=== PATIENT | male | born 1980 | race Caucasian/White ===

== ENCOUNTER 2019-07-24 09:27 | Inpatient (IN) | payer OTHER ==
[~2019-07-24] VITALS: Ht 152.4 cm; Wt 108.0 kg
[2019-07-24] VITALS (9 sets, daily range): BP systolic 100–158; BP diastolic 58–96
[~2019-07-24 09:27] MED LIST: HYDR-2761 PO; OXYC1TAB19 PO
[2019-07-24] MEDS ORDERED: ONDANSETRON PF 4 MG/2 ML VIAL. IVP PRN ×2 (11:15→15:15)
[2019-07-24] MEDS: POTASSIUM CL 20MEQ D5-0.45NACL 1,000 ML IV SCH ×2 (11:48→21:30)
[2019-07-24] MEDS: fentaNYL PF VIAL 100 MCG/2 ML VIAL IVP PRN ×2 (11:48→16:14)
--- NOTE | 2019-07-24 11:55 | PDOC2 ---
CONSULT Date of Consult Date of Consult DATE: 07/24/19 TIME: 11:48 Reason for Consult Reason for Consult: symptomatic cholelithiasis Referring Physician Referring Physician: Dr Parkinson Identification/Chief Complaint Chief Complaint RUQ pain Source Source: Chart review, Patient History of Present Illness Reason for Visit: Taurus is a 38 yo gentleman with acute onset of RUQ pain. He had a similar, less severe episode in May and had a GB US which showed cholelithiasis. Repeat US in the [facility] ED this am confirmed the stones and some inflammatory changes. He is tx to [facility] for treatment Past Medical History Cardiovascular: No pertinent hx Pulmonary: No pertinent hx Renal/: No pertinent hx Past Surgical History Past Surgical History: Other (knee scope) Family History Family History: No Significant Social History No ALCOHOL: occassional Current Medications Current Medications Current Medications Fentanyl Citrate (Fentanyl 2ml Vial) 50 mcg PRN Q3HRS PRN IVP PAIN; Start 07/24/19 at 11:15 Ondansetron HCl (Zofran) 4 mg PRN Q4HRS PRN IVP NAUSEA/VOMITING; Start 07/24/19 at 11:15 Potassium Chloride/Dextrose/ Sod Cl 1,000 ml @ 100 mls/hr Q10H IV ; Start 07/24/19 at 11:30 Active Scripts Active Percocet 7.5-325 Mg Tablet (Oxycodone/Acetaminophen) 1 Each Tablet 1-2 Tab PO Q4-6HRS PRN Allergies Allergies: Coded Allergies: No Known Drug Allergies (Unverified , 03/13/15) ROS Gastrointestinal: Yes Nausea, Yes Abdominal Pain Musculoskeletal: Yes Joint Pain Physical Exam General: Alert, Oriented X3, No acute distress HEENT: Atraumatic Lungs: Normal air movement Heart: Regular rate Abdomen: Soft, No tenderness Skin: Other (warm, dry) Labs Labs results from [facility] ED reviewed (nl LFTs) Images Images US done at [facility] this AM reviewed Assessment/Plan Assessment/Plan symptomatic cholelithiasis cholecystitis rec OR explained risks of l/s angeline to Taurus including but not limited to bleeding, infection, injury to surrounding structures requiring further surgery, possible open procedure, possible drain he will proceed Thanks for consult ALECIA LAND MD July 24, 2019 11:54
--- NOTE | 2019-07-24 12:21 | HP ---
ADMIT DATE: 07/24/2019 HISTORY OF PRESENT ILLNESS: The patient is a 38-year-old male patient who presented to the Emergency Room of [facility] with a complaint of abdominal pain that awakened him this morning at around 03:40. The pain is severe, according to him and goes through and through to the back, some nausea, but no vomiting, lasted all the time. He arrived to the Emergency Room of [facility]. He stated that he has had similar episode on last Thursday that lasted for about 4-1/2 hours, kept him awake the whole night and eventually subsided. He denied any vomiting, denied any diarrhea or constipation. He denied any chills, rigors or fever. He was evaluated in the Emergency Room and was extensively investigated. He has lab work, which were unremarkable except slightly elevated ALT. Lactic acid was normal and urinalysis was unremarkable. He had ultrasound of the abdomen which showed that the majority of the liver is visualized and appears homogenous. There is increased echogenicity attenuation of sound which further limits ultrasound and sensitivity for possible ulcerative lesion. The liver measures about 18 cm in length. The common bile duct is mildly dilated and measures about 6.5 mm in diameter. The gallbladder is mildly distended and there are 6 stones and sludge. The gallbladder appears borderline thickened and there is trace of pericystic fluid. There is tenderness over the gallbladder. Pancreas is not well visualized due to overlying bowel gas. The right kidney appears to be normal and measures 11.5 cm in length and the patient was diagnosed with acute cholecystitis and was transferred to [facility] for further evaluation and perhaps definitive surgical treatment by the surgical team. PAST MEDICAL HISTORY: Unremarkable. PAST SURGICAL HISTORY: Significant for arthroscopic right knee surgery for torn anterior cruciate ligament. ALLERGIES: He has no known drug allergies. MEDICATIONS: He is currently on no medication by prescription or [id number]. FAMILY HISTORY: He has 2 brothers, 1 older and 1 younger. His father at the age of 63 because of throat cancer, felt to be due to [place]. His mother is still alive at the age of 70 and has diabetes. SOCIAL HISTORY: He is , has 1 son. He never smoked, does not drink alcohol. 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 REVIEW OF SYSTEMS: Unremarkable. PHYSICAL EXAMINATION: GENERAL: On examining him, he looked well and was clearly in no apparent respiratory distress. No pallor, jaundice, cyanosis, or thyromegaly. No jugular venous distention. No limb edema. VITAL SIGNS: His heart rate was 77, blood pressure was 154/72, temperature was 98.1, respiratory rate was 22, and oxygen saturation was 100% on room air. HEAD, EYES, EARS, NOSE AND THROAT: Showed normocephalic, atraumatic. NECK: Supple. HEART: Normal first and second heart sounds. No gallop or murmur. CHEST: Clear to auscultation. No crepitation or rhonchi. ABDOMEN: Distended. Tenderness mostly in the epigastric and right upper quadrant area. No guarding or rigidity. No organomegaly. All hernial orifices intact. Bowel sounds normal. NEUROLOGIC: He is grossly intact. LABORATORY DATA: Showed a white cell count of 9400, hemoglobin 14.8, hematocrit 44.8, MCV 89, and platelet count of 219,000 with normal manual differential. His chemistry showed a serum sodium 139, potassium 3.9, chloride 102, bicarbonate 26, anion gap of 11, BUN 19, creatinine 1.3, estimated GFR was 62 mL per minute. His glucose 111, lactic acid was 1.1, calcium was 9.2, magnesium 2.1. Total bilirubin, AST, and alkaline phosphatase normal. ALT is slightly elevated. His CK was 826. Total protein 7.3, albumin was 4. Serum lipase was 164. His prothrombin time, INR, and aPTT are normal and his urinalysis essentially unremarkable. His ultrasound showed that he has cholelithiasis and probable mild acute cholecystitis, mild hepatomegaly with fatty infiltration of the liver. He has also mildly dilated common bile duct with no stones in the common bile duct. PLAN: My plan is to keep him n.p.o. and start him on IV fluid, IV pain medication, antiemetic, and to consult the surgical team for further evaluation and treatment. ANTHONY DOMINGUEZ MD DR: CYRUS/ranjith JOB#: [id number] / [id number]
[2019-07-24] MEDS ORDERED: IV RINGERS,LACTATED 1000ML 1,000 ML IV SCH (12:33)
[2019-07-24] MEDS ORDERED: GLUCAGON,HUMAN RECOMBINANT 1 MG/ML VIAL. ONE (12:40)
[2019-07-24] MEDS ORDERED: SURGICEL HEMOSTAT 4X8 EACH. ONE ×2 (12:40→14:18)
[2019-07-24] MEDS ORDERED: IOHEXOL 300 MG/ML 50 ML VIAL. ONE (12:40)
[2019-07-24] MEDS ORDERED: BUPIVACAINE-EPI 0.5%-1:200000 MPF 30 ML VIAL. ONE (12:40)
[2019-07-24] MEDS ORDERED: PROCHLORPERAZINE 10 MG/2 ML VIAL. IV PRN (12:45)
[2019-07-24] MEDS ORDERED: MORPHINE SULFATE 2 MG/ML VIAL. IV PRN (12:45)
[2019-07-24] MEDS ORDERED: LIDOCAINE 1% PF 2 ML VIAL. ID PRN (12:45)
[2019-07-24] MEDS ORDERED: HYDROmorphone 2 MG/ML VIAL IV PRN ×2 (12:45→15:15)
[2019-07-24] MEDS ORDERED: fentaNYL PF VIAL 100 MCG/2 ML VIAL IV PRN (12:45)
[2019-07-24] MEDS ORDERED: ONDANSETRON PF 4 MG/2 ML VIAL. IV PRN (12:45)
[2019-07-24] MEDS ORDERED: fentaNYL PF VIAL 250 MCG/5 ML VIAL ONE (12:52)
[2019-07-24] MEDS ORDERED: ROCURONIUM 50 MG/5 ML VIAL. ONE (12:52)
[2019-07-24] MEDS ORDERED: SUCCINYLCHOLINE 200 MG/10 ML VIAL. ONE (12:52)
[2019-07-24] MEDS ORDERED: ceFAZolin SODIUM 3 GM in IV DEXTROSE 5% 100ML 100 ML IV PRN (13:00)
[2019-07-24] MEDS ORDERED: DEXAMETHASONE SOD PHOS 4 MG/ML VIAL ONE (14:39)
[2019-07-24] MEDS ORDERED: LIDOCAINE 2% PF 5 ML VIAL. ONE (14:39)
[2019-07-24] MEDS ORDERED: SEVOFLURANE 61 TO 120 MINUTES. IH ONE (14:39)
[2019-07-24] MEDS ORDERED: ONDANSETRON PF 4 MG/2 ML VIAL. ONE (14:39)
[2019-07-24] MEDS ORDERED: PROPOFOL 10 MG/ML (20ML) VIAL. IV ONE (14:39)
[2019-07-24] MEDS ORDERED: NEOSTIGMINE METHYLSULFATE 5 MG/5 ML SYRINGE. ONE (14:39)
[2019-07-24] MEDS ORDERED: GLYCOPYRROLATE 1 MG/5 ML VIAL. ONE (14:40)
[2019-07-24] MEDS: fentaNYL PF VIAL 100 MCG/2 ML VIAL IV PRN ×3 (14:55→15:19)
[2019-07-24] MEDS ORDERED: IV NORMAL SALINE 1000ML BAG 1,000 ML IV SCH (15:09)
[2019-07-24] MEDS: POTASSIUM CL 20MEQ-0.45% NACL 1,000 ML IV SCH (15:09)
[2019-07-24] MEDS ORDERED: NALOXONE 0.4 MG/ML VIAL. IV PRN (15:15)
[2019-07-24] MEDS ORDERED: oxyCODONE/APAP 5/325 1 TAB TABLET PO PRN (15:15)
[2019-07-24] MEDS ORDERED: DEXTROSE 50% 25 GM / 50ML DISP.SYRIN. IV PRN (15:15)
[2019-07-24] MEDS ORDERED: diphenhydrAMINE HCL 25 MG CAPSULE PO PRN (15:15)
[2019-07-24] MEDS ORDERED: 0.9 % SODIUM CHLORIDE 10 ML DISP.SYRIN. IV PRN (15:15)
--- NOTE | 2019-07-24 15:16 | PDOC ---
BRIEF OPERATIVE NOTE Date: July 24, 2019 Pre-Op Diagnosis cholelithiasis with subacute cholecystitis Post-Op Diagnosis same Procedure Performed l/s cholecystectomy with cholangiograms Surgeon Fabrizio FREITAS Anesthesia Type: General Blood Loss 50cc IV Fluid 600cc Specimens Obtained GB Findings no passage of contrast into the duodenum, sludge/debris in cystic duct Complications none ALECIA LAND MD July 24, 2019 15:16
--- NOTE | 2019-07-24 18:11 | OP ---
DATE OF SURGERY: 07/24/2019 PREOPERATIVE DIAGNOSIS: Cholelithiasis with subacute cholecystitis. POSTOPERATIVE DIAGNOSIS: Cholelithiasis with subacute cholecystitis. PROCEDURE: Laparoscopic cholecystectomy with cholangiogram. SURGEON: Edgar Land M.D. VALVE TECHNICIAN: FORTINO Mosqueda ANESTHESIA: General endotracheal. ESTIMATED BLOOD LOSS: 50 mL. INTRAVENOUS FLUIDS: 600 mL. INDICATIONS: The patient is a 38-year-old with known cholelithiasis, who presented to the Emergency Department at [place] with increased epigastric and right upper quadrant pain. He is brought for cholecystectomy. OPERATIVE FINDINGS: The liver was smooth and sharp. The gallbladder was mildly edematous. Cholangiogram showed the biliary tree in its entirety, however, contrast did not flow into the duodenum despite giving 1 mg of glucagon. Remainder of the inspection of the abdomen failed to reveal obvious abnormalities. DESCRIPTION OF PROCEDURE: The patient was brought to the operating suite, given a general endotracheal anesthetic and the abdomen was prepped and draped in usual sterile fashion. A supraumbilical incision was infiltrated with local anesthetic, incised, and a 5-mm Visiport used to safely gain access into the abdominal cavity taking care to avoid injury to the abdominal contents. Pneumoperitoneum established. Camera inserted. Inspection carried out with results as noted above. With the table in reverse Trendelenburg rolled to the left, the epigastric, midclavicular, and lateral ports were placed under direct vision. The gallbladder was retracted superolaterally and the cystic duct and cystic artery were carefully exposed. The duct was clipped on the gallbladder side and when opened for cholangiogram, extruded some yellow viscous material. The duct was milked until bile returned and a catheter was then placed. Cholangiograms were made. These showed a feathery biliary system; however, no contrast made its way into the duodenum. In light of this, the patient was given 1 mg of glucagon and after 2 minutes circulation time, repeat films continued to show no drainage of contrast into the duodenum. The catheter was removed. The cystic duct was clipped x 3 and divided taking care to avoid injury or compromise of the common duct. The cystic artery was clipped x 2 and divided, then gallbladder freed from the bed and placed in an EndoCatch bag. Hemostasis in the fossa obtained with cautery, Surgicel, and FloSeal. When hemostasis had been obtained, a 19-English round Derian drain was brought through the epigastric port out the lateral port, sewn into the skin with a silk stitch and left in the subhepatic space for postoperative drainage. Table returned to level. Gallbladder delivered through the epigastric incision, which was then closed with 0 Vicryl suture. At 6 cm intra-abdominal pressure, no bleeding from the epigastric closure, midclavicular port site after its removal, gallbladder fossa, drain site, abdomen decompressed, camera slowly removed, no bleeding seen. Skin incisions were closed with subcuticular 4-0 Monocryl. Steri-Strips and sterile dressings applied. The patient was awakened from his anesthetic and taken to the recovery room in satisfactory condition. EDGAR LAND MD DR: SHARON/ranjith JOB#: [id number] / [id number] ANTHONY Welsh MD
[2019-07-24] MEDS: DOCUSATE SODIUM 100 MG CAPSULE. PO SCH (20:22)
[2019-07-24] MEDS: oxyCODONE/APAP 5/325 1 TAB TABLET PO PRN (20:23)
[2019-07-25] MEDS: oxyCODONE/APAP 5/325 1 TAB TABLET PO PRN ×3 (00:36→11:16)
[2019-07-25] MEDS: POTASSIUM CL 20MEQ-0.45% NACL 1,000 ML IV SCH ×2 (00:42→09:29)
[2019-07-25 03:00] VITALS: BP 117/72
[2019-07-25 04:59] LABS: HEMATOCRIT 42.4 % (39.0-53.0); HEMOGLOBIN 14.1 g/dL (13.0-17.5); RED BLOOD COUNT 4.8 x10^6/uL (4.30-5.70); RED CELL DISTRIBUTION WIDTH 14.5 % (11.5-14.5); WHITE BLOOD COUNT 12.7 x10^3/uL (4.0-11.0)
[2019-07-25 05:29] LABS: ALBUMIN 3.5 g/dL (3.4-5.0); CALCIUM 8.6 mg/dL (8.5-10.1); CREATININE 1.3 mg/dL (0.7-1.3); GFR 62.5; POTASSIUM 4.6 mmol/L (3.5-5.1); TOTAL BILIRUBIN 0.7 mg/dL (0.2-1.0); TOTAL PROTEIN 7.1 g/dL (6.4-8.2)
[2019-07-25] MEDS ORDERED: ENOXAPARIN 40 MG/0.4 ML SYRINGE. SQ SCH ×2 (06:00→21:00)
[2019-07-25 07:20] VITALS: BP 123/70
[2019-07-25] MEDS: POTASSIUM CL 20MEQ D5-0.45NACL 1,000 ML IV SCH (07:30)
[2019-07-25] MEDS: DOCUSATE SODIUM 100 MG CAPSULE. PO SCH (09:28)
--- NOTE | 2019-07-25 09:52 | PDOC2 ---
GI CONSULT Reason For Consult: abnormal cholangiogram HPI: HPI: Pleasant 38 w/o male s/p cholecystectomy for cholelithiasis and cholecystitis by Dr. Dinh on 07/24/19. Operative note reviewed re: IOC - "no passage of contrast into the duodenum, sludge/debris in cystic duct" and we are asked to see for this. Bili and Alk Phos WNL w/ slightly elevated AST and ALT. Has some RUQ soreness post-op but pain prior to surgery has resolved. Before admission/surgery, terrible pain awoke him during the night several times. Tolerating clears w/o n/v and is passing gas. No chronic abd pain, diarrhea, constipation, hematochezia, or melena. Has occasional heartburn improved w/ Tums PRN. Has some chronic dysphagia symptoms - says "it's hard to swallow" and food "goes down hard" if he takes the first couple bites of food before taking a drink. Once he takes a drink, has no issues. No previous EGD or colonoscopy. No liver, pancreas, or PUD history. He would like to go home today. On US from [facility]: CBD 6.5mm, fatty liver. PMH: PMH: vasectomy, right ACL repair FH: Family History: Cancer (father - esophageal) Social History: Smoke: No ALCOHOL: none Drugs: None ROS: GEN: Denies fevers, chills, sweats HEENT: Denies blurred vision, sore throat CV: Denies chest pain RESP: Denies shortness of air, cough GI: Per HPI : Denies hematuria, dysuria ENDO: Denies weight changes NEURO: Denies confusion, dizziness MSK: Denies weakness, joint pain/swelling SKIN: Denies jaundice, pruritus Vitals: Vitals: Vital Signs Date Time Temp Pulse Resp B/P (MAP) Pulse Ox O2 Delivery O2 Flow Rate FiO2 07/25/19 07:20 97.7 82 17 123/70 (87) 98 Room Air 97.7 07/24/19 15:02 3 Labs: Labs: Laboratory Tests Test 07/25/19 04:20 White Blood Count 12.7 x10^3/uL (4.0-11.0) Red Blood Count 4.80 x10^6/uL (4.30-5.70) Hemoglobin 14.1 g/dL (13.0-17.5) Hematocrit 42.4 % (39.0-53.0) Mean Corpuscular Volume 88 fL (79-100) Mean Corpuscular Hemoglobin 29 pg (25-35) Mean Corpuscular Hemoglobin Concent 33 g/dL (31-37) Red Cell Distribution Width 14.5 % (11.5-14.5) Platelet Count 209 x10^3/uL (140-400) Sodium Level 140 mmol/L (136-145) Potassium Level 4.6 mmol/L (3.5-5.1) Chloride Level 104 mmol/L (98-107) Carbon Dioxide Level 27 mmol/L (21-32) Anion Gap 9 (6-14) Blood Urea Nitrogen 9 mg/dL (8-26) Creatinine 1.3 mg/dL (0.7-1.3) Estimated GFR (Cockcroft-Gault) 62.5 BUN/Creatinine Ratio 7 (6-20) Glucose Level 109 mg/dL (70-99) Calcium Level 8.6 mg/dL (8.5-10.1) Total Bilirubin 0.7 mg/dL (0.2-1.0) Aspartate Amino Transf (AST/SGOT) 67 U/L (15-37) Alanine Aminotransferase (ALT/SGPT) 113 U/L (16-63) Alkaline Phosphatase 82 U/L (46-116) Total Protein 7.1 g/dL (6.4-8.2) Albumin 3.5 g/dL (3.4-5.0) Albumin/Globulin Ratio 1.0 (1.0-1.7) Allergies: Coded Allergies: No Known Drug Allergies (Unverified , 03/13/15) Medications: Current Medications Medications (Trade) Dose Ordered Sig/Amaya Route PRN Reason Start Time Stop Time Status Last Admin Dose Admin Fentanyl Citrate (Fentanyl 2ml Vial) 50 mcg PRN Q3HRS PRN IVP PAIN 07/24/19 11:15 07/24/19 16:14 Potassium Chloride/Dextrose/ Sod Cl 1,000 ml @ 100 mls/hr Q10H IV 07/24/19 11:30 07/24/19 11:48 Metronidazole 100 ml @ 100 mls/hr 1X ONCE IV 07/24/19 13:00 07/24/19 14:03 DC 07/24/19 13:36 Fentanyl Citrate (Fentanyl 2ml Vial) 50 mcg PRN Q5MIN PRN IV MODERATE TO SEVERE PAIN 07/24/19 12:45 07/25/19 12:44 07/24/19 15:19 Bupivacaine HCl/ Epinephrine Bitart (Sensorcain-Epi 0.5%-1:427527 Mpf) 30 ml STK-MED ONCE .ROUTE 07/24/19 12:40 07/24/19 12:40 DC 07/24/19 13:38 Iohexol (Omnipaque 300 Mg/ml) 50 ml STK-MED ONCE .ROUTE 07/24/19 12:40 07/24/19 12:40 DC 07/24/19 13:38 Cellulose (Surgicel Hemostat 4x8) 1 each STK-MED ONCE .ROUTE 07/24/19 12:40 07/24/19 12:41 DC 07/24/19 14:09 Cellulose (Surgicel Hemostat 4x8) 1 each STK-MED ONCE .ROUTE 07/24/19 14:18 07/24/19 14:18 DC 07/24/19 14:26 Enoxaparin Sodium (Lovenox 40mg Syringe) 40 mg Q24H SQ 07/25/19 06:00 07/25/19 06:22 Potassium Chloride/Sodium Chloride 1,000 ml @ 100 mls/hr Q10H IV 07/24/19 15:09 07/25/19 09:29 Oxycodone/ Acetaminophen (Percocet 5/325) 2 tab PRN Q4HRS PRN PO MODERATE PAIN, SEVERE PAIN 07/24/19 15:15 07/25/19 05:08 Docusate Sodium (Colace) 100 mg BID PO 07/24/19 21:00 07/25/19 09:28 Imaging: Imaging: IOC pending PE: GEN: NAD HEENT: Atraumatic, PERRLA LUNGS: CTAB HEART: RRR, no murmurs ABD: NABS, S/ND/NT, no masses EXTREMITY: No edema SKIN: No rashes, no jaundice NEURO/PSYCH: A & O 3 A/P: A/P: S/p cholecystectomy (cholelithiasis, cholecystitis), abnormal IOC Mildly elevated AST and ALT Heartburn, chronic/intermittent dysphagia CRC screen - average risk Fatty liver FH esophageal cancer -- Reviewed w/ Dr. Gan - check LFTs again - if stable/improved and tolerating diet, may DC from GI perspective. Considering heartburn history and FH of esophageal cancer, should pursue outpt EGD. QUINCY NUNEZ July 25, 2019 09:52
[2019-07-25] MEDS ORDERED: CALCIUM CARBONATE 500 MG TAB.CHEW PO PRN (10:00)
--- NOTE | 2019-07-25 10:46 | PN ---
DATE: 07/25/2019 SUBJECTIVE: The patient is sitting at the edge of the bed comfortably in no apparent distress. He continued to have some discomfort in his right upper quadrant, but denied any nausea or vomiting and he tolerating a liquid diet, he passed gas, but no bowel movement. PHYSICAL EXAMINATION: GENERAL: When I saw him, he looked well and was clearly in no apparent respiratory distress. No pallor, jaundice, cyanosis or thyromegaly. No jugular venous distention. No limb edema. VITAL SIGNS: His heart rate was 82, blood pressure was 123/70, temperature 97.7, respiratory rate 17, and oxygen saturation was 98% on room air. ABDOMEN: Slightly distended, soft with tenderness mostly in the upper quadrant. No guarding or rigidity. No organomegaly. Bowel sounds normal. NEUROLOGIC: He is grossly intact. His intake and output incompletely recorded. LABORATORY DATA: Lab work this morning showed a serum sodium 140, potassium 4.6, chloride 104, bicarbonate 27, anion gap of 9, BUN 9, creatinine 1.3, estimated GFR was 62 mL per minute. His glucose 109, calcium was 8.6. Total bilirubin and alkaline phosphatase normal. AST, ALT slightly elevated. Total protein 7.1, albumin 3.5. White cell count was 12,700, hemoglobin 14, hematocrit 42, MCV 88, and platelet count of 109,000. ASSESSMENT: This is a 38-year-old male patient who was admitted with cholelithiasis and acute cholecystitis for which he underwent laparoscopic cholecystectomy with cholangiogram. The patient is doing well, has no nausea, no vomiting, continued to have some discomfort in the right upper quadrant, tolerating a liquid diet. He passed gas. We will continue with IV fluid for now and pain medication and DVT prophylaxis. ANTHONY DOMINGUEZ MD DR: CYRUS/ranjith JOB#: [id number] / [id number]
[2019-07-25 11:00] VITALS: BP 126/72
--- NOTE | 2019-07-25 12:42 | NUR ---
SW following. Discussed with RN, pt wanting to go home today, ok to DC from GI standpoint. Clear liquid diet. RN advised no SW needs. SW will continue to follow.
--- NOTE | 2019-07-25 12:46 | PDOC ---
SURGICAL PROGRESS NOTE Subjective sore at epigastric site after tripping earlier Vital Signs Vital Signs Date Time Temp Pulse Resp B/P (MAP) Pulse Ox O2 Delivery O2 Flow Rate FiO2 07/25/19 11:16 Room Air 07/25/19 11:00 97.4 71 17 126/72 (90) 96 97.4 07/24/19 15:02 3 I&O Intake and Output 07/25/19 07:00 Intake Total 2750 ml Output Total 100 ml Balance 2650 ml Intake Oral 450 ml IV Total 1100 ml Other 1200 ml Output Drainage Total 100 ml # Voids 1 PATIENT HAS A SALDANA: No General: Alert, Oriented X3 Abdomen: Soft, Other (SILVINA with some serosanguineous output) Labs Laboratory Tests Test 07/25/19 04:20 07/25/19 04:25 White Blood Count 12.7 x10^3/uL (4.0-11.0) Red Blood Count 4.80 x10^6/uL (4.30-5.70) Hemoglobin 14.1 g/dL (13.0-17.5) Hematocrit 42.4 % (39.0-53.0) Mean Corpuscular Volume 88 fL (79-100) Mean Corpuscular Hemoglobin 29 pg (25-35) Mean Corpuscular Hemoglobin Concent 33 g/dL (31-37) Red Cell Distribution Width 14.5 % (11.5-14.5) Platelet Count 209 x10^3/uL (140-400) Sodium Level 140 mmol/L (136-145) Potassium Level 4.6 mmol/L (3.5-5.1) Chloride Level 104 mmol/L (98-107) Carbon Dioxide Level 27 mmol/L (21-32) Anion Gap 9 (6-14) Blood Urea Nitrogen 9 mg/dL (8-26) Creatinine 1.3 mg/dL (0.7-1.3) Estimated GFR (Cockcroft-Gault) 62.5 BUN/Creatinine Ratio 7 (6-20) Glucose Level 109 mg/dL (70-99) Calcium Level 8.6 mg/dL (8.5-10.1) Total Bilirubin 0.7 mg/dL (0.2-1.0) Aspartate Amino Transf (AST/SGOT) 67 U/L (15-37) Alanine Aminotransferase (ALT/SGPT) 113 U/L (16-63) Alkaline Phosphatase 82 U/L (46-116) Total Protein 7.1 g/dL (6.4-8.2) Albumin 3.5 g/dL (3.4-5.0) Albumin/Globulin Ratio 1.0 (1.0-1.7) Direct Bilirubin 0.1 mg/dL (0.0-0.2) Laboratory Tests Test 07/25/19 04:20 07/25/19 04:25 White Blood Count 12.7 x10^3/uL (4.0-11.0) Red Blood Count 4.80 x10^6/uL (4.30-5.70) Hemoglobin 14.1 g/dL (13.0-17.5) Hematocrit 42.4 % (39.0-53.0) Mean Corpuscular Volume 88 fL (79-100) Mean Corpuscular Hemoglobin 29 pg (25-35) Mean Corpuscular Hemoglobin Concent 33 g/dL (31-37) Red Cell Distribution Width 14.5 % (11.5-14.5) Platelet Count 209 x10^3/uL (140-400) Sodium Level 140 mmol/L (136-145) Potassium Level 4.6 mmol/L (3.5-5.1) Chloride Level 104 mmol/L (98-107) Carbon Dioxide Level 27 mmol/L (21-32) Anion Gap 9 (6-14) Blood Urea Nitrogen 9 mg/dL (8-26) Creatinine 1.3 mg/dL (0.7-1.3) Estimated GFR (Cockcroft-Gault) 62.5 BUN/Creatinine Ratio 7 (6-20) Glucose Level 109 mg/dL (70-99) Calcium Level 8.6 mg/dL (8.5-10.1) Total Bilirubin 0.7 mg/dL (0.2-1.0) Aspartate Amino Transf (AST/SGOT) 67 U/L (15-37) Alanine Aminotransferase (ALT/SGPT) 113 U/L (16-63) Alkaline Phosphatase 82 U/L (46-116) Total Protein 7.1 g/dL (6.4-8.2) Albumin 3.5 g/dL (3.4-5.0) Albumin/Globulin Ratio 1.0 (1.0-1.7) Direct Bilirubin 0.1 mg/dL (0.0-0.2) Assessment/Plan POD 1 l/s angeline OK to dismiss from surgery standpoint f/u in [facility] office for drain removal ALECIA LAND MD July 25, 2019 12:46
[2019-07-25] MEDS ORDERED: OXYC1TAB15 PO (12:49)
--- NOTE | 2019-07-25 14:52 | NUR ---
Pt. discharged to home, Rx transmitted to pharmacy per Dr. Dinh. Verbalized understanding of discharge instructions. Lap sites TAZ, JARETT. SILVINA donovan in tact. Pt. verbalized understanding of home drain teaching and received drain record.
[2019-07-26] MEDS ORDERED: AMOX1TAB61 PO (03:41)
[2019-07-26] MEDS ORDERED: OXYC1TAB19 PO (03:41)
--- NOTE | 2019-07-26 16:06 | PATHOLOGY ---
[facility] Accession Number: [id number] . 01 Material submitted: . gallbladder - GALLBLADDER . 01 Clinical history: . cholelithiasis . 02 Diagnosis: Gallbladder, laparoscopic cholecystectomy: - Cholelithiasis. - Cholesterolosis. 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 . ([facility]:mm; 07/26/2019) PENDING SALE TO [facility] 07/26/2019 1305 Local . 02 Comment: There is no evidence of malignancy. . ([facility]:mm; 07/26/2019) . 02 Electronically signed: . Eyal Buchanan MD, Pathologist NPI- [id number] . 01 Gross description: . The specimen is received in formalin labeled "Jhon, Taurus, gallbladder" and consists of an intact pink-lee gallbladder measuring 8.5 x 3.0 x 2.4 cm. The margin is inked black. Opening reveals a lumen filled with tenacious green bile and a single circular green calculus measuring 1.2 cm. The mucosa is green with extensive yellow stippling with an average wall thickness of 0.1. Adjacent the gallbladder neck is a lymph node candidate measuring 0.5 cm. No masses are identified. [employer] sections are submitted in A1 to include the lymph node candidate (intact). (SDY; 07/25/2019) SYU/SYU 07/25/2019 1608 Local . 02 Pathologist provided ICD-10: K80.10, K82.4 . 02 CPT . 783511 Specimen Comment: A courtesy copy of this report has been sent to [phone], [phone] Specimen Comment: [id number] Specimen Comment: Report sent to / DR UREÑA Performed at: 01 [facility] [address], [place], [place] [id number] MD Andrae Carter MD Phone: [phone] Performed at: 02 [facility] [address], [place] [id number] MD Eyal Buchanan MD Phone: [phone]
== END 2019-07-25 15:52 | disposition home or self-care (01) | DRG 419 ==
LOC: 4 NORTH 09:27
PROVIDERS: ADMIT Internal Medicine; ATTEND Internal Medicine
PROC: BF101ZZ Fluoroscopy of Bile Ducts using Low Osmolar Contrast (ICD-10-PCS; 2019-07-24)
PROC: 0FT44ZZ Resection of Gallbladder, Percutaneous Endoscopic Approach (ICD-10-PCS; principal; 2019-07-24 13:00)
DX: K80.00 Calculus of gallbladder with acute cholecystitis without obstruction (principal); K80.10 Calculus of gallbladder with chronic cholecystitis without obstruction; K76.0 Fatty (change of) liver, not elsewhere classified; Z80.8 Family history of malignant neoplasm of other organs or systems; Z83.3 Family history of diabetes mellitus
CPT/HCPCS: 36415; 74300; 80053; 82248; 85027; 88304; A7015; J0330; J1100; J1610; J1650; J2405; J2704; J2710; J3010; J3480; J3490; J7030; J7120; Q9967; G0378

== ENCOUNTER 2019-07-26 01:15 | Emergency (ER) | payer OTHER ==
[~2019-07-26] VITALS: Ht 175.3 cm; Wt 102.2 kg
[~2019-07-26 01:15] MED LIST changes: +OXYC1TAB15 PO
[2019-07-26] MEDS ORDERED: CONTRAST GIVEN. MC PRN (01:45)
[2019-07-26 01:49] LABS: BASO % 1 % (0-3); EOS # 0.1 x10^3/uL (0.0-0.7); EOS % 2 % (0-3); HEMATOCRIT 41.5 % (39.0-53.0); HEMOGLOBIN 13.8 g/dL (13.0-17.5); LYMPH # 2.1 x10^3/uL (1.0-4.8); LYMPH % 25 % (24-48); MEAN CORPUSCULAR HEMOGLOBIN 29 pg (25-35); MEAN CORPUSCULAR HGB CONC 33 g/dL (31-37); MEAN CORPUSCULAR VOLUME 88 fL (79-100); MONO # 0.6 x10^3/uL (0.0-1.1); MONO % 7 % (0-9); NEUT # 5.4 x10^3/uL (1.8-7.7); NEUT % 66 % (31-73); PLATELET COUNT 177 x10^3/uL (140-400); RED BLOOD COUNT 4.74 x10^6/uL (4.30-5.70); RED CELL DISTRIBUTION WIDTH 14.4 % (11.5-14.5); WHITE BLOOD COUNT 8.2 x10^3/uL (4.0-11.0)
[2019-07-26 01:55] LABS: CALCIUM 8.7 mg/dL (8.5-10.1); CREATININE 1.3 mg/dL (0.7-1.3); GFR 62.5; POTASSIUM 3.8 mmol/L (3.5-5.1)
[2019-07-26 02:00] LABS: ALBUMIN 3.5 g/dL (3.4-5.0); TOTAL BILIRUBIN 0.7 mg/dL (0.2-1.0)
[2019-07-26] MEDS ORDERED: IOHEXOL 300 MG/ML 100ML VIAL. IV ONE (02:00)
--- NOTE | 2019-07-26 02:27 | RAD ---
CT SCAN OF THE ABDOMEN AND PELVIS WITH IV CONTRAST. History: Postop abdominal pain Comparison:None. Procedure: Contiguous axial images of the abdomen and pelvis were performed after the administration of 75 cc of Omni 300 IV contrast. Oral contrast: No. Findings: There is patchy consolidation in the lower lobes bilaterally right worse than left. There is a percutaneous drain on the right there is mild emphysema in the right lateral abdominal wall associated with the drain placement. There is a small amount of dense fluid along the paracolic gutter on the right. The appendix is normal. The gallbladder has been removed and a small amount of air and fluid in the gallbladder fossa and there is mild free air anteriorly under the diaphragm. Liver: Unremarkable Spleen: Unremarkable Pancreas: Unremarkable Adrenal Glands: Unremarkable Kidneys: Unremarkable There is no mass or lymphadenopathy. The urinary bladder appears normal. Impression: 1. Mild air and fluid in the gallbladder fossa consistent with recent cholecystectomy. There is also a few foci of free air under the diaphragm. And minimal blood in the paracolic gutter on the right. 2. Bilateral lower lobe infiltrates with consolidation. End impression PQRS Compliance Statement: One or more of the following individualized dose reduction techniques were utilized for this examination: 1. Automated exposure control 2. Adjustment of the mA and/or kV according to patient size 3. Use of iterative reconstruction technique Electronically signed by: Alphonse Richard III, MD (07/26/2019 2:24 AM) [facility]
--- NOTE | 2019-07-26 03:15 | PHYS DOC ---
Past Medical History Past Medical History: No Pertinent History Past Surgical History: Cholecystectomy, Other Additional Past Surgical Histo: Right knee scope Smoking Status: Never Smoker Alcohol Use: None General Adult EDM: Chief Complaint: ABDOMINAL PAIN HPI: HPI: Patient is a 38 year old male who presents via EMS with report of severe upper abdominal pain after having had cholecystectomy. Patient was just discharged home yesterday and states that he was prescribed hydrocodone which has not been helping with the pain. He states the pain is worsened when he walks. He rates pain at a 9 out of 10 at that time. He states that is just unbearable. He does report some nausea but no vomiting. Patient has had no fever and states that he has not yet had a bowel movement since the surgery. [] Review of Systems: Review of Systems: Constitutional: Denies fever or chills. [] Respiratory: Denies cough or shortness of breath. [] Cardiovascular: Denies chest pain or edema. [] GI: Complains of abdominal pain. [] Neurologic: Denies headache, focal weakness or sensory changes. [] A full 10 point review of systems has been reviewed and is otherwise negative. Heart Score: Risk Factors: Risk Factors: DM, Current or recent (<one month) smoker, HTN, HLP, family history of CAD, obesity. Risk Scores: Score 0 - 3: 2.5% MACE over next 6 weeks - Discharge Home Score 4 - 6: 20.3% MACE over next 6 weeks - Admit for Clinical Observation Score 7 - 10: 72.7% MACE over next 6 weeks - Early Invasive Strategies Current Medications: Current Medications Medications (Trade) Dose Ordered Sig/Amaya Start Time Stop Time Status Last Admin Dose Admin Info (CONTRAST GIVEN -- Rx MONITORING) 1 each PRN DAILY PRN 07/26/19 01:45 07/28/19 01:44 Iohexol (Omnipaque 300 Mg/ml) 75 ml 1X ONCE 07/26/19 02:00 07/26/19 02:01 DC Allergies: Allergies: Allergies Coded Allergies Type Severity Reaction Last Updated Verified No Known Drug Allergies 03/13/15 No Physical Exam: PE: Constitutional: Well developed, well nourished, no acute distress, non-toxic appearance. [] HENT: Normocephalic, atraumatic, bilateral external ears normal, oropharynx moist, no oral exudates, nose normal. [] Eyes: PERRLA, EOMI, conjunctiva normal, no discharge. [] Neck: Normal range of motion, no tenderness, supple, no stridor. [] Cardiovascular: Regular rate and rhythm [] Lungs & Thorax: Bilateral breath sounds clear to auscultation [] Abdomen: Bowel sounds normal, soft, with diffuse tenderness, greatest in the right upper quadrant. [] Skin: Warm, dry, no erythema, no rash. [] Extremities: No tenderness, no cyanosis, no clubbing, ROM intact, no edema. [] Neurologic: Alert and oriented X 3, no focal deficits noted. [] Current Patient Data: Labs: Laboratory Tests Test 07/26/19 01:30 White Blood Count 8.2 x10^3/uL (4.0-11.0) Red Blood Count 4.74 x10^6/uL (4.30-5.70) Hemoglobin 13.8 g/dL (13.0-17.5) Hematocrit 41.5 % (39.0-53.0) Mean Corpuscular Volume 88 fL (79-100) Mean Corpuscular Hemoglobin 29 pg (25-35) Mean Corpuscular Hemoglobin Concent 33 g/dL (31-37) Red Cell Distribution Width 14.4 % (11.5-14.5) Platelet Count 177 x10^3/uL (140-400) Neutrophils (%) (Auto) 66 % (31-73) Lymphocytes (%) (Auto) 25 % (24-48) Monocytes (%) (Auto) 7 % (0-9) Eosinophils (%) (Auto) 2 % (0-3) Basophils (%) (Auto) 1 % (0-3) Neutrophils # (Auto) 5.4 x10^3/uL (1.8-7.7) Lymphocytes # (Auto) 2.1 x10^3/uL (1.0-4.8) Monocytes # (Auto) 0.6 x10^3/uL (0.0-1.1) Eosinophils # (Auto) 0.1 x10^3/uL (0.0-0.7) Basophils # (Auto) 0.0 x10^3/uL (0.0-0.2) Sodium Level 137 mmol/L (136-145) Potassium Level 3.8 mmol/L (3.5-5.1) Chloride Level 103 mmol/L (98-107) Carbon Dioxide Level 24 mmol/L (21-32) Anion Gap 10 (6-14) Blood Urea Nitrogen 12 mg/dL (8-26) Creatinine 1.3 mg/dL (0.7-1.3) Estimated GFR (Cockcroft-Gault) 62.5 BUN/Creatinine Ratio 9 (6-20) Glucose Level 98 mg/dL (70-99) Calcium Level 8.7 mg/dL (8.5-10.1) Total Bilirubin 0.7 mg/dL (0.2-1.0) Aspartate Amino Transferase (AST) 38 U/L (15-37) H Alanine Aminotransferase (ALT) 95 U/L (16-63) H Alkaline Phosphatase 73 U/L (46-116) Total Protein 7.0 g/dL (6.4-8.2) Albumin 3.5 g/dL (3.4-5.0) Albumin/Globulin Ratio 1.0 (1.0-1.7) Laboratory Tests 07/26/19 01:30 Laboratory Tests 07/26/19 01:30 Vital Signs: Vital Signs Date Time Temp Pulse Resp B/P (MAP) Pulse Ox O2 Delivery O2 Flow Rate FiO2 07/26/19 01:15 98.0 83 21 139/75 (96) 95 Room Air 98.0 EKG: EKG: [] Radiology/Procedures: Radiology/Procedures: [] Impression: PROCEDURE: CT ABD PELV W/ IV CONTRST ONLY CT SCAN OF THE ABDOMEN AND PELVIS WITH IV CONTRAST. History: Postop abdominal pain Comparison:None. Procedure: Contiguous axial images of the abdomen and pelvis were performed after the administration of 75 cc of Omni 300 IV contrast. Oral contrast: No. Findings: There is patchy consolidation in the lower lobes bilaterally right worse than left. There is a percutaneous drain on the right there is mild emphysema in the right lateral abdominal wall associated with the drain placement. There is a small amount of dense fluid along the paracolic gutter on the right. The appendix is normal. The gallbladder has been removed and a small amount of air and fluid in the gallbladder fossa and there is mild free air anteriorly under the diaphragm. Liver: Unremarkable Spleen: Unremarkable Pancreas: Unremarkable Adrenal Glands: Unremarkable Kidneys: Unremarkable There is no mass or lymphadenopathy. The urinary bladder appears normal. Impression: 1. Mild air and fluid in the gallbladder fossa consistent with recent cholecystectomy. There is also a few foci of free air under the diaphragm. And minimal blood in the paracolic gutter on the right. 2. Bilateral lower lobe infiltrates with consolidation. End impression PQRS Compliance Statement: One or more of the following individualized dose reduction techniques were utilized for this examination: 1. Automated exposure control 2. Adjustment of the mA and/or kV according to patient size 3. Use of iterative reconstruction technique Electronically signed by: Ibrahima Richard III, MD (07/26/2019 2:24 AM) [id number] DICTATED and SIGNED BY: IBRAHIMA RICHARD III, MD DATE: 07/26/19 0224 Course & Med Decision Making: Course & Med Decision Making Pertinent Labs and Imaging studies reviewed. (See chart for details) [] Dragon Disclaimer: Dragon Disclaimer: This electronic medical record was generated, in whole or in part, using a voice recognition dictation system. Departure Departure Impression: Primary Impression: Postoperative pain Additional Impression: Pulmonary consolidation determined by examination Disposition: 01 HOME, SELF-CARE Condition: STABLE Referrals: VITO UREÑA (PCP) Patient Instructions: Pain Relief Preoperatively and Postoperatively, Pneumonia, Adult Scripts Amoxicillin/Potassium Clav (AUGMENTIN 875-125 TABLET) 1 Each Tablet 1 TAB PO BID for 10 Days, #20 TAB 0 Refills Prov: GELY MANE Jr. DO 07/26/19 Oxycodone/Apap 7.5-325 (PERCOCET 7.5-325 MG TABLET ) 1 Each Tablet 1 TAB PO QIDPRN PRN for PAIN MDD 4 Tablet(s) for 3 Days, #12 TAB 0 Refills Prov: GELY MANE Jr. DO 07/26/19 GELY MANE Jr. DO July 26, 2019 03:15
[2019-07-26] MEDS ORDERED: AMOX1TAB61 PO (03:41)
[2019-07-26] MEDS ORDERED: OXYC1TAB19 PO (03:41)
[2019-07-26] MEDS ORDERED: AMOXICILLIN/K CLAV 875/125MG TABLET. PO ONE (04:00)
[2019-07-26] MEDS ORDERED: oxyCODONE/APAP 7.5/325 1 TAB TABLET ONE (04:02)
[2019-07-26 04:15] VITALS: BP 152/71
[2019-07-26] MEDS ORDERED: oxyCODONE/APAP 7.5/325 1 TAB TABLET PO ONE (04:30)
== END 2019-07-26 04:19 | disposition home or self-care (01) ==
LOC: ER 01:15
DX: G89.18 Other acute postprocedural pain (principal); R10.11 Right upper quadrant pain; R11.0 Nausea; Z90.49 Acquired absence of other specified parts of digestive tract; Z98.890 Other specified postprocedural states
CPT/HCPCS: 36415; 74177; 80053; 85025; 99285